=== PATIENT | male | born 1990 | race Hispanic/Latino ===

== ENCOUNTER 2024-10-08 17:06 | Emergency (ER) | payer OTHER ==
[~2024-10-08] VITALS: Ht 180.3 cm; Wt 104.3 kg
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
[2024-10-08] MEDS: CYCLOBENZAPRINE HCL 10 MG TABLET PO SCH (17:56)
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
[2024-10-08] MEDS ORDERED: CYCL10TA16 PO (18:48)
[2024-10-08] MEDS ORDERED: IBUP-2070 PO (18:48)
--- NOTE | 2024-10-08 18:55 | NUR ---
2ND AND 3RD FINGERS ERICKA TAPED TO EACH OHTER, PT TOLERATED WELL
[2024-10-08 18:56] VITALS: BP 124/72; PULSE 71; RESP 16; TEMP 97.9; O2SAT 98
== END 2024-10-08 18:55 | disposition home or self-care (01) ==
LOC: EDH 17:12
DX: S62.621A Displaced fracture of middle phalanx of left index finger, initial encounter for closed fracture (principal); S62.623A Displaced fracture of middle phalanx of left middle finger, initial encounter for closed fracture; S20.212A Contusion of left front wall of thorax, initial encounter; V89.2XXA Person injured in unspecified motor-vehicle accident, traffic, initial encounter; Y93.89 Activity, other specified; Y92.89 Other specified places as the place of occurrence of the external cause; Y99.8 Other external cause status
CPT/HCPCS: 29130; 71101; 73130; 99284